=== PATIENT | female | born 1950 | race Caucasian/White ===

== ENCOUNTER 2017-02-20 10:14 | Day surgery (SDC) | payer MEDICARE ==
[~2017-02-20] VITALS: Ht 167.6 cm; Wt 119.1 kg
[~2017-02-20 10:14] MED LIST: ACETAMINOPHEN 500 MG TAB (TYLENOL) PO PRN; BSS OPHTHALMIC IRRIGATION SOLUTION 15 ML BTL ONE; CHONDROITIN/HYALURONATE (DISCOVISC) 1 ML SYR IO ONE; FURO20TA4 PO; GLIP5TAB13 PO; LISI1TAB8 PO; LOVA10TA PO; METF-474 PO; PHENYLEPHRINE/KETOROLAC 4 ML VIAL IO ONE; SODIUM CHLORIDE FLUSH 3 ML SYR IV PRN; TETRACAINE 0.5% OPHTHALMIC SOLUTION 4 ML BTL ONE; diphenhydrAMINE 50 MG/ML INJ (BENADRYL) IV PRN
--- OUTSIDE RECORDS SUMMARY | 2017-02-20 10:18 | XMS REPORT | CCD ---
Author Author JASMINE MAYA Organization Unknown Address [address], [place] [id number] Phone 0 Care Team Providers Care Banquet Prep Cook Name Role Phone KATIE GONSALEZ 0 Vital Signs Unknown or Not Available. Allergies Unknown or Not Available. Procedures Unknown or Not Available. History of Immunizations Unknown or Not Available. Problems Unknown or Not Available. Results Unknown or Not Available. Active Medications Unknown or Not Available. Medications Administered During Visit Unknown or Not Available. Encounters Unknown or Not Available. Social History Smoking Status Code Start Date End Date Never smoker [id number] Patient Decision Aids Unknown or Not Available. Discharge Instructions You were admitted to [facility] on 12/14/2016 11:18 You were discharged from [facility] on 12/14/2016 11:18 Should you have any questions prior to discharge, please contact a member of your healthcare team. If you have left the hospital and have any questions, please contact your primary care physician. Chief Complaint and Reason For Visit Chief Complaint Date of Onset MM UNILAT Function Status Unknown or Not Available. Plan of Care Unknown or Not Available. Referral/Transition of Care Unknown or Not Available.
[2017-02-20 10:22] VITALS: BP 145/69
[2017-02-20] MEDS: LIDOCAINE 3.5% OPHTH GEL (AKTEN) 1 ML BTL OD SCH ×4 (10:28→10:58)
[2017-02-20] MEDS: CATARACT PRE-OP EYE DROPS 0.5ML SYRINGE OD SCH ×3 (10:38→10:58)
[2017-02-20] MEDS: HOME MEDICATION OD SCH ×3 (10:38→10:58)
[2017-02-20] MEDS ORDERED: ASPI-586 PO (10:55)
[2017-02-20] MEDS ORDERED: MIDAZOLAM 2 MG/2 ML (VERSED) VIAL ONE ×2 (11:10→11:35)
[2017-02-20] MEDS ORDERED: ALFENTANIL 1,000 MCG/2 ML AMP IV ONE (11:23)
[2017-02-20] MEDS ORDERED: CHONDROITIN/HYALURONATE (VISCOAT) 0.5 ML SYR IO ONE (11:28)
[2017-02-20] MEDS ORDERED: ACETYLCHOLINE CHLORIDE 20 MG/2 ML KIT IO ONE (11:33)
[2017-02-20 12:19] VITALS: BP 133/69
[2017-02-20 12:59] VITALS: BP 131/67
[2017-02-20 13:28] VITALS: BP 136/71
[2017-02-20 14:00] VITALS: BP 139/71
[2017-02-20 14:30] VITALS: BP 141/50
== END 2017-02-20 15:16 | disposition home or self-care (01) ==
LOC: ASC 10:14
PROVIDERS: ATTEND Ophthalmology
DX: H26.9 Unspecified cataract (principal); E11.9 Type 2 diabetes mellitus without complications; I10 Essential (primary) hypertension; F41.9 Anxiety disorder, unspecified; G47.33 Obstructive sleep apnea (adult) (pediatric); E78.5 Hyperlipidemia, unspecified; Z79.899 Other long term (current) drug therapy; Z79.84 Long term (current) use of oral hypoglycemic drugs
CPT/HCPCS: 36415; 66984; 84132; A9270; C9447; J2250; V2632

== ENCOUNTER 2017-03-20 09:52 | Day surgery (SDC) | payer MEDICARE ==
[~2017-03-20] VITALS: Ht 167.6 cm; Wt 119.0 kg
[2017-03-20] VITALS (9 sets, daily range): BP systolic 108–140; BP diastolic 47–74
[~2017-03-20 09:52] MED LIST changes: +ASPI-586 PO; -BSS OPHTHALMIC IRRIGATION SOLUTION 15 ML BTL ONE
[2017-03-20] MEDS: LIDOCAINE 3.5% OPHTH GEL (AKTEN) 1 ML BTL OS SCH ×4 (11:10→11:45)
[2017-03-20] MEDS: CATARACT PRE-OP EYE DROPS 0.5ML SYRINGE OS SCH ×3 (11:22→11:45)
[2017-03-20] MEDS: HOME MEDICATION OS SCH ×2 (11:36→11:45)
[2017-03-20] MEDS ORDERED: ALFENTANIL 1,000 MCG/2 ML AMP IV ONE (12:23)
[2017-03-20] MEDS ORDERED: MIDAZOLAM 2 MG/2 ML (VERSED) VIAL ONE ×3 (12:23→13:21)
[2017-03-20] MEDS ORDERED: CHONDROITIN/HYALURONATE (VISCOAT) 0.5 ML SYR IO ONE (12:38)
[2017-03-20] MEDS ORDERED: ACETYLCHOLINE CHLORIDE 20 MG/2 ML KIT IO ONE ×2 (12:51→13:30)
[2017-03-20] MEDS ORDERED: acetaZOLAMIDE 250 MG (DIAMOX) TAB PO ONE (14:05)
--- NOTE | 2017-03-20 14:16 | NUR ---
DIAMOX 500MG PO SENT HOME WITH PATIENT TO TAKE @ [facility].
[2017-03-20] MEDS ORDERED: acetaZOLAMIDE 250 MG (DIAMOX) TAB PO SCH (21:00)
== END 2017-03-20 16:48 | disposition home or self-care (01) ==
LOC: ASC 09:52
PROVIDERS: ATTEND Ophthalmology
DX: H25.12 Age-related nuclear cataract, left eye (principal); I10 Essential (primary) hypertension; G47.33 Obstructive sleep apnea (adult) (pediatric); E11.9 Type 2 diabetes mellitus without complications; Z79.84 Long term (current) use of oral hypoglycemic drugs; E66.9 Obesity, unspecified; Z68.41 Body mass index [BMI] 40.0-44.9, adult
CPT/HCPCS: 36415; 66982; 84132; A9270; C9447; J2250; V2632